=== PATIENT | female | born 1955 | race Hispanic/Latino ===

== ENCOUNTER 2018-02-13 11:13 | Emergency (ER) | payer BC ==
[~2018-02-13 11:13] MED LIST: Z.0.LEVOTHROID50 MCG; Z.0.PRINIVIL10 MG; Z.0.VERAPAMIL ER240
--- OUTSIDE RECORDS SUMMARY | 2018-02-13 11:16 | XMS REPORT | CCD ---
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 Role Phone NONE, None PP Unavailable Sha Daly CP Allergies, Adverse Reactions, Alerts Substance Reaction Status sulfa drugs Active Problem List Condition Effective Dates Status HTN - Hypertension Resolved Hypothyroid Resolved Medications Medication Instructions Start Date End Date Status clindamycin 150 mg 300 mg=2 cap, PO, Q6H, # 56 cap, 0 03/13/2013 03/20/2013 Ordered oral capsule Refill(s) Vital Signs Most recent to oldest [Reference Range]: 1 2 Height 152.4 cm (03/12/2013 23:44:00) Temperature Oral [96.4-99.1 DegF] 97.7 DegF (03/13/2013 04:14:00) 97.9 DegF (03/12/2013 23:44:00) Systolic Blood Pressure [90-140 mmHg] 154 mmHg *HI* (03/13/2013 04:14:00) 172 mmHg *HI* (03/12/2013 23:44:00) Diastolic Blood Pressure [60-90 mmHg] 66 mmHg (03/13/2013 04:14:00) 90 mmHg (03/12/2013 23:44:00) Respiratory Rate [14-20 BRMIN] 20 BRMIN (03/13/2013 04:14:00) 20 BRMIN (03/12/2013 23:44:00) Peripheral Pulse Rate [60-100 bpm] 56 bpm *LOW* (03/13/2013 04:14:00) 78 bpm (03/12/2013 23:44:00) Weight 109.091 kg (03/12/2013 23:44:00)
--- OUTSIDE RECORDS SUMMARY | 2018-02-13 11:16 | XMS REPORT | Summary of Care ---
Author Author [facility] Organization [facility] Address Unknown Phone Unavailable Encounter HQ June(FIN) [id number] Date(s): 04/06/17 - 04/06/17 [facility] [id number] [place] [address]- Encounter Diagnosis Acute pain of left knee (Discharge Diagnosis) - 04/06/17 Acute pain of left shoulder (Discharge Diagnosis) - 04/06/17 Fall on same level from slipping, tripping or stumbling (Discharge Diagnosis) - 04/06/17 Pain in left shoulder (Final) - 04/13/17 Pain in left knee (Final) - Fall on same level from slipping, tripping and stumbling without subsequent stri geronimo against object, initial encounter (Final) - Essential (primary) hypertension (Final) - Thyrotoxicosis, unspecified without thyrotoxic crisis or storm (Final) - Discharge Disposition: Home or Self Care Attending Physician: Chandler Daniels MD Vital Signs Most recent to 1 2 oldest [Reference Range]: Height 152.4 cm (04/06/17 2:38 PM) Temperature Oral 98.0 DegF 97.5 DegF [96.4-99.1 DegF] (04/06/17 6:07 PM) (04/06/17 2:38 PM) Blood Pressure 135/80 mmHg 176/96 mmHg [90-140/60-90 mmHg] (04/06/17 6:07 PM) *HI* (04/06/17 2:38 PM) Respiratory Rate 20 BRMIN 18 BRMIN [14-20 BRMIN] (04/06/17 6:07 PM) (04/06/17 2:38 PM) Peripheral Pulse 58 bpm 60 bpm Rate [60-100 bpm] *LOW* (2/14/18 2:38 PM) (04/06/17 6:07 PM) Weight 108.636 kg (04/06/17 2:38 PM) Body Mass Index 46.77 m2 (04/06/17 2:38 PM) Problem List Condition Effective Dates Status Health Status Informant HTN - Resolved Hypertension(Confirm ed) Hypothyroid(Confirme Resolved d) Allergies, Adverse Reactions, Alerts Substance Reaction Severity Status sulfa drugs Active Medications Ultram 50 mg oral tablet 50 mg=1 tab, PO, Q4H, PRN pain, X 5 day, # 30 tab, 0 Refill(s) Start Date: 04/06/17 Stop Date: 04/11/17 Status: Completed Results No data available for this section Immunizations No data available for this section Procedures No data available for this section Social History Social History Type Response Smoking Status Never smoker; Exposure to Tobacco Smoke None; Cigarette Smoking Last 365 Days No; Reg Smoking Cessation Counseling No entered on: 04/06/17 Assessment and Plan No data available for this section
--- OUTSIDE RECORDS SUMMARY | 2018-02-13 11:16 | XMS REPORT | Continuity of Care Document ---
Author Author [facility] Address Unknown Phone Unavailable Problems Problem Status Onset Date Classification Date Reported Comments Source Pain in left shoulder 04/14/2017 07/13/2017 [facility] FALL Active 04/06/2017 [facility] Acute pain of left knee 04/06/2017 07/13/2017 [facility] Acute pain of left shoulder 04/06/2017 07/13/2017 [facility] Fall on same level from slipping, tripping or stumbling 04/06/2017 07/13/2017 [facility] LEG PAIN Active 03/12/2013 [facility] Pain in left knee 07/13/2017 [facility] Fall on same level from slipping, tripping and stumbling without subsequent striking against object, initial encounter 07/13/2017 [facility] Essential hypertension 07/13/2017 [facility] Thyrotoxicosis, unspecified without thyrotoxic crisis or storm 07/13/2017 [facility] HTN - Hypertension Resolved Problem 07/13/2017 [facility] Hypothyroid Resolved Problem 07/13/2017 [facility] Medications Medication Details Route Status Patient Instructions Ordering Provider Order Date Source tramadol hydrochloride 50 MG Oral Tablet [Ultram] 50 mg=1 tab, PO, Q4H, PRN pain, X 5 day, # 30 tab, 0 Refill(s) No Longer Active 04/06/2017 [facility] clindamycin 150 mg oral capsule 300 mg=2 cap, PO, Q6H, # 56 cap, 0 Refill(s) Active Short 03/13/2013 [facility] Allergies, Adverse Reactions, Alerts Substance Category Reaction Severity Reaction type Status Date Reported Comments Source sulfa drugs drug allergy Allergy [facility] Immunizations Immunization Date Given Site Status Last Updated Comments Source Results Order Name Results Value Reference Range Date Interpretation Comments Source Elbow 3 views DX Elbow 3 views DX 3 VIEWS OF THE LEFT ELBOW HISTORY: Left elbow pain. COMPARISON: No priors available. Bony structures of the elbow are intact. No fracture or dislocation. Adjacent soft tissues normal. IMPRESSION: Normal exam. END REPORT SL: [id number] 04/06/2017 - - Read by: Rashawn Kwon MD Dictated Date/time: 04/06/17 15:41 Electronically Signed by: Rashawn Kwon MD 04/06/17 15:42 FINAL REPORT [facility] Knee 3 views DX Knee 3 views DX XR LEFT KNEE 3V HISTORY: - Left knee pain. COMPARISON: None. FINDINGS: AP, lateral and oblique images of the left knee demonstrate no acute bone, joint or soft tissue abnormality. Osteoarthritic changes are noted with primary involvement of the medial compartment. The medial joint space is narrowed. Corresponding osteophytes noted. Small patellar osteophytes also noted. No evidence of joint fluid. IMPRESSION: 1. Osteoarthritis. SL: LS-M 04/06/2017 - - Read by: Xiang Anderson MD Dictated Date/time: 04/06/17 15:41 Electronically Signed by: Xiang Anderson MD 04/06/17 15:42 FINAL REPORT [facility] Humerus 2 views DX Humerus 2 views DX Patient Name: CHARLOTTE PRECIADO : 1955; Age: 61 years y/o Female MR: [id number] Study: 2 view examination of the left humerus dated 04/06/2017. Clinical Indication: Left arm pain; Comparison: None No fracture, dislocation or radiopaque foreign body. Mild degenerative changes seen about the left acromioclavicular joint. [facility] - - Read by: Froilan Dempsey MD Dictated Date/time: 04/06/17 15:40 Electronically Signed by: Froilan Dempsey MD 04/06/17 15:42 FINAL REPORT [facility] Shoulder series DX Shoulder series DX Patient Name: CHARLOTTE PRECIADO : 1955; Age: 61 years y/o Female MR: [id number] Study: 3 view examination of the left shoulder dated 04/06/2017. Clinical Indication: Left shoulder pain; Comparison: None Mild degenerative changes seen about the left acromioclavicular joint. Degenerative changes are seen about the visualized mid and lower thoracic spine. No fracture or dislocation. SL: CS[facility]ERSAL[facility]- 04/06/2017 - - Read by: Froilan Dempsey MD Dictated Date/time: 04/06/17 15:39 Electronically Signed by: Froilan Dempsey MD 04/06/17 15:40 FINAL REPORT [facility] Vital Signs Vital Sign Value Date Comments Source Respitory Rate 20 04/07/2017 [facility] Systolic (mm Hg) 135 04/07/2017 [facility] Diastolic (mm Hg) 80 04/07/2017 [facility] Temperature Oral (F) 98.0 F 04/07/2017 [facility] Heart Rate 58 04/07/2017 [facility] BMI Calculated 46.77 04/06/2017 [facility] Weight 108.636 04/06/2017 [facility] Systolic (mm Hg) 176 04/06/2017 [facility] Diastolic (mm Hg) 96 04/06/2017 [facility] Respitory Rate 18 04/06/2017 [facility] Heart Rate 60 04/06/2017 [facility] Temperature Oral (F) 97.5 F 04/06/2017 [facility] Height 152.4 cm 04/06/2017 [facility] Temperature Oral (F) 97.7 F 03/13/2013 [facility] Diastolic (mm Hg) 66 03/13/2013 [facility] Systolic (mm Hg) 154 03/13/2013 [facility] Respitory Rate 20 03/13/2013 [facility] Heart Rate 56 03/13/2013 [facility] Weight 109.091 03/13/2013 [facility] Height 152.4 cm 03/13/2013 [facility] Systolic (mm Hg) 172 03/13/2013 [facility] Heart Rate 78 03/13/2013 [facility] Diastolic (mm Hg) 90 03/13/2013 [facility] Respitory Rate 20 03/13/2013 [facility] Temperature Oral (F) 97.9 F 03/13/2013 [facility] Encounters Location Location Details Encounter Type Encounter Number Reason For Visit Attending Provider ADM Date DC Date Status Source [facility] Emergency [id number] TY YUAN 03/12/2013 03/13/2013 Active [facility] Emergency [id number] Chandler Daniels 04/06/2017 04/07/2017 [facility] Procedures Procedure Code Date Perfomer Comments Source
== END 2018-02-13 11:50 | disposition short-term general hospital (02) ==
LOC: ER 11:13
DX: R05 Cough (principal)